=== PATIENT | male | born 1945 | race Caucasian/White ===

== ENCOUNTER 2018-01-18 18:51 | Emergency (ER) | payer MEDICARE, OTHER, SELFPAY ==
[2018-01-18] VITALS (24 sets, daily range): BP systolic 114–145; BP diastolic 57–76; PULSE 82–99; RESP 15–27; TEMP 36.6; O2SAT 92–99
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
[2018-01-18] MEDS: fentaNYL 100 MCG/2 ML VIAL 50 MCG IVP (18:54)
[2018-01-18 18:58] LABS: Basophils % 0.2; Eosinophils % 0.9; HCT 45.6 % (40.0-50.0); Immature Grans % 0.6; Lymphocytes % 8.9; Mean Corp. HGB Concentration 32.9 g/dL (32.0-36.0); Mean Corpuscular Hemoglobin 31.4 pg (27.0-33.0); Mean Corpuscular Volume 95.6 fL (80-95); Mean Platelet Volume 9.8 fL (8.0-11.0); Monocytes % 7.2; Neutrophils % 82.2; Platelet Count 273 x1000/uL (130-400); RBC 4.77 m/cumm (4.50-6.00); RBC Distribution Width 13.3 % (11.8-14.1); White Blood Cell Count 17.27 k/cumm (4.4-10.8)
[2018-01-18 19:01] LABS: Absolute Basophil Count 0.03 k/cumm (0.0-0.2); Absolute Eosinophil Count 0.16 k/cumm (0.0-0.7); Absolute Lymphocyte Count 1.54 k/cumm (1.2-3.4); Absolute Monocyte Count 1.24 k/cumm (0.11-0.7)
[2018-01-18 19:12] LABS: ALT 41 U/L (12-78); AST 28 U/L (15-37); Albumin 3.5 g/dL (3.4-5.0); Alkaline Phosphatase 45 U/L (46-116); Anion Gap 10.2 mmol/L (3-11); BUN 20 mg/dL (7-18); Bilirubin, Total 0.2 mg/dL (0.2-1.0); CO2 28.8 mmol/L (21.0-32.0); CREATININE 0.94 mg/dL (0.70-1.30); Calcium 8.8 mg/dL (8.5-10.1); Chloride 100 mmol/L (98-107); Glucose 117 mg/dL (70-100); Potassium 3.6 mmol/L (3.5-5.1); Sodium 139 mmol/L (136-145); Total Protein 6.8 g/dL (6.4-8.2)
[2018-01-18 19:15] LABS: Troponin I < 0.02 ng/mL (0.00-0.06)
[2018-01-18] MEDS: Normal Saline 1,000 ML 500 ML IV (19:20)
[2018-01-18] MEDS: fentaNYL 100 MCG/2 ML VIAL (19:38)
--- NOTE | 2018-01-18 19:38 | NUR.NOTE ---
Pt. returned from CT at this [place], was taken on monitor with this RN. Pt. endorsed significant sternal pain with movement, Vitals remained stable throughout CT. Pt. medicated for pain as ordered, remains a/o. Will continue to monitor.
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
--- NOTE | 2018-01-18 20:49 | NUR.NOTE ---
MARITZA Salvador is at the bedside updating patient on test results. Pt. remains a/o, VSS on the monitor.
== END 2018-01-18 21:57 ==
LOC: ER 20:26
PROVIDERS: Emergency Provider Physician Assistant
DX: R07.89 Other chest pain (principal); S80.811A Abrasion, right lower leg, initial encounter; S80.812A Abrasion, left lower leg, initial encounter; V57.5XXA Driver of pick-up truck or van injured in collision with fixed or stationary object in traffic accident, initial encounter
CPT/HCPCS: 36415; 74177; 80053; 93005; 96361; 96374; 96376; 99285; 70450; 71045; 72125; 83735; 84484; 85025; 93010; J3010; L0172